=== PATIENT | female | born 1970 | race Caucasian/White ===

== ENCOUNTER → 2018-02-21 | Outpatient (CLI) | payer OTHER | LOC: BRMIMAGING 09:10 | PROVIDERS: ATTEND Family Medicine | DX: N63.23 Unspecified lump in the left breast, lower outer quadrant (principal) | CPT/HCPCS: 76641-PO ==

== ENCOUNTER → 2018-02-28 | Outpatient (CLI) | payer OTHER ==
[~2018-02-28] MED LIST: BUPIVACAINE 0.5% 30 ML SDV ONE; LIDOCAINE 1% 300 MG/30 ML SDV ONE; THROMBIN (BOVINE) 5,000 UNIT VIAL TP ONE
== END ==
LOC: FIMAGING 07:22
PROVIDERS: ATTEND Family Medicine
PROC: 0HBU3ZX Excision of Left Breast, Percutaneous Approach, Diagnostic (ICD-10-PCS; principal; 2018-02-28)
DX: C50.512 Malignant neoplasm of lower-outer quadrant of left female breast (principal)

== ENCOUNTER → 2018-03-11 | Outpatient (CLI) | payer OTHER ==
[~2018-03-11] MED LIST changes: -BUPIVACAINE 0.5% 30 ML SDV ONE; +GADOBUTROL 10 ML VIAL IVP ONE; -LIDOCAINE 1% 300 MG/30 ML SDV ONE; -THROMBIN (BOVINE) 5,000 UNIT VIAL TP ONE
== END ==
LOC: FIMAGING 11:35
PROVIDERS: ATTEND Surgery
DX: C50.412 Malignant neoplasm of upper-outer quadrant of left female breast (principal); N63.22 Unspecified lump in the left breast, upper inner quadrant; R59.9 Enlarged lymph nodes, unspecified
CPT/HCPCS: A9585; C8908

== ENCOUNTER → 2018-03-17 | Outpatient (CLI) | payer OTHER ==
--- NOTE | 2018-03-22 11:57 | PDHPUP ---
History & Physical Update H&P update statement: This history and physical update is based on an assessment of the patient which was completed after admission or registration (within 24 hours), but prior to the surgery/procedure. H&P update: H&P reviewed & patient examined, no change in patient's condition since H&P completed
--- NOTE | 2018-03-22 11:59 | POSTOPPROG ---
Post Op Note Date of Operation: 03/22/18 Surgeon: Alisson Hallman Sketch Artist: jose Anesthesiologist: gisella Anesthesia: LMA Pre-op Diagnosis: L breast cancer Post-op Diagnosis: L breast cancer Indication: 47 yo with L breast cancer Procedure: R us ij port and L sln Findings: several nodes Inf/Abcess present in the surg proc area at time of surgery?: No EBL: Minimal Drains: Nephrostomy Specimen(s): sln
== END | disposition home or self-care (01) ==
LOC: FIMAGING 13:24
PROVIDERS: ATTEND Surgery
DX: C50.412 Malignant neoplasm of upper-outer quadrant of left female breast (principal)

== ENCOUNTER 2018-03-22 08:50 | Day surgery (SDC) | payer OTHER ==
[~2018-03-22 08:50] MED LIST changes: -GADOBUTROL 10 ML VIAL IVP ONE; +LR 1,000 ML IV ONE; +ceFAZolin 2 GM/DEXTROSE 100 ML IV ONE
[2018-03-22] MEDS ORDERED: BUPIVACAINE 0.5% 30 ML SDV ONE (09:44)
--- NOTE | 2018-03-22 10:28 | PDANEPAE ---
ANE Past Medical History - Cardiovascular History Hx Hypertension: No Hx Arrhythmias: No Hx Chest Pain: No Hx Coronary Artery / Peripheral Vascular Disease: No Hx CHF / Valvular Disease: No Hx Palpitations: No - Pulmonary History Hx COPD: No Hx Asthma/Reactive Airway Disease: No Hx Recent Upper Respiratory Infection: No Hx Oxygen in Use at Home: No Hx Sleep Apnea: No - Neurologic History Hx Cerebrovascular Accident: No Hx Seizures: No Hx Dementia: No - Endocrine History Hx Diabetes: No - Liver History Hx Hepatic Disorders: No - Neurological & Psychiatric Hx Hx Neurological and Psychiatric Disorders: No - Cancer History Hx Cancer: Yes - Congenital Disorder History Hx Congenital Disorders: No - GI History Hx Gastrointestinal Disorders: No - Surgical History Prior Surgeries: 2 breast augmentations. 2 c-sections ANE Review of Systems Review of Systems: - Exercise capacity METS (RN): 4 METS ANE Patient History - Allergies Allergies/Adverse Reactions: morphine Allergy (Verified 03/22/18 09:19) Penicillins Allergy (Verified 03/22/18 09:19) Rash - Home Medications Home Medications: BIOTIN 03/22/18 [Last Taken 03/21/18] Prilosec 03/22/18 [Last Taken 03/21/18] Sertraline HCl 03/22/18 [Last Taken 03/21/18] Xanax 0.5 MG (*) 0.5 mg 03/22/18 [Last Taken 03/22/18] - NPO status NPO Since - Liquids (Date): 03/22/18 NPO Since - Liquids (Time): 01:00 NPO Since - Solids (Date): 03/22/18 NPO Since - Solids (Time): 01:00 - Smoking Hx Smoking Status: Never smoked - Family Anes Hx Family Hx Anesthesia Complications: dad-hard time coming out of anesthesia ANE Labs/Vital Signs - Vital Signs Blood Pressure: 109/56 Heart Rate: 81 Respiratory Rate: 19 O2 Sat (%): 93 Height: 160.02 cm Weight: 83.915 kg ANE Physical Exam - Airway Neck exam: FROM, spinal fusion Mouth exam: normal dental/mouth exam - Pulmonary Pulmonary: no respiratory distress, no rales or rhonchi, clear to auscultation - Cardiovascular Cardiovascular: regular rate and rhythym, no murmur, rub, or gallop - ASA Status ASA Status: II ANE Anesthesia Plan Anesthesia Plan: GA w LMA
[2018-03-22] MEDS ORDERED: MIDAZOLAM 2 MG/2 ML VIAL ONE ×2 (10:38→10:53)
[2018-03-22] MEDS ORDERED: LIDOCAINE 2% 5 ML SDV ONE (10:43)
[2018-03-22] MEDS ORDERED: PROPOFOL/EMULSION 500 MG/50 ML BOTTLE IV ONE (10:43)
[2018-03-22] MEDS ORDERED: KETAMINE 200 MG/20 ML VIAL ONE (10:43)
[2018-03-22] MEDS ORDERED: ONDANSETRON 4 MG/2 ML VIAL ONE (10:51)
[2018-03-22] MEDS ORDERED: RANITIDINE 50 MG/2 ML VIAL ONE (10:51)
[2018-03-22] MEDS ORDERED: METOCLOPRAMIDE 10 MG/2 ML VIAL ONE (10:51)
[2018-03-22] MEDS ORDERED: PROPOFOL 200 MG/20 ML VIAL ONE (11:14)
[2018-03-22] MEDS ORDERED: ONDANSETRON 4 MG/2 ML VIAL IVP PRN (11:22)
[2018-03-22] MEDS ORDERED: fentaNYL 100 MCG/2 ML INJ IVP PRN (11:22)
[2018-03-22] MEDS ORDERED: PROMETHAZINE HCL 25 MG/ML INJ IVP PRN (11:22)
[2018-03-22] MEDS ORDERED: ALBUTEROL 3 ML DEYVIAL IH PRN (11:22)
[2018-03-22] MEDS ORDERED: HYDROCODONE/APAP 5/325 TAB PO PRN ×2 (11:22→14:23)
[2018-03-22] MEDS ORDERED: NALOXONE HCL 0.4 MG/ML INJ IVP PRN (11:22)
[2018-03-22] MEDS ORDERED: oxyCODONE IR 5 MG TAB PO PRN (11:22)
[2018-03-22] MEDS ORDERED: DIAZEPAM 5 MG/ML 1 ML SYR IVP PRN (11:22)
[2018-03-22] MEDS ORDERED: METOCLOPRAMIDE 10 MG/2 ML VIAL IVP PRN (11:22)
[2018-03-22] MEDS ORDERED: LR 500 ML IV PRN (11:22)
[2018-03-22] MEDS ORDERED: DEXAMETHASONE 4 MG/ML VIAL IVP PRN (11:22)
--- NOTE | 2018-03-22 12:52 | POSTOPPROG ---
Post Op Note Date of Operation: 03/22/18 Surgeon: Alisson Hallman Alumni Relations Manager: jose Anesthesiologist: gisella Anesthesia: GET(General Endotracheal) Pre-op Diagnosis: L breast ca Post-op Diagnosis: same Indication: 47yo F with L breast ca Procedure: R USguided IJ power port, L SLN biopsy Findings: none unusual Inf/Abcess present in the surg proc area at time of surgery?: No EBL: Minimal
[2018-03-22] MEDS ORDERED: fentaNYL 100 MCG/2 ML INJ ONE (12:56)
--- NOTE | 2018-03-22 13:59 | POSTANESTH ---
Post Anesthetic Evaluation Cardiovascular Status: Normal, Stable, Similar to Pre-Op Cond Respiratory Status: Normal, Stable, Similar to Pre-op Cond. Level of Consciousness/Mental Status: Can Participate in Eval Pain Control: Adequate, Prn Tx Ordered Nausea/Vomiting Control: Adequate, Prn Tx Ordered Complications Possibly Related to Anesthesia: None Noted
[2018-03-22] MEDS ORDERED: HYDROCODONE/APAP 5/325 TAB ONE (14:10)
[2018-03-22 15:29] VITALS: BP 108/64
--- NOTE | 2018-03-22 16:03 | GOP ---
DATE OF OPERATION: 03/22/2018 SURGEON: Alisson Hallman MD PROBATION AGENT: Kelly Marinelli PA-C ANESTHESIA: General. ANESTHESIOLOGIST: Dr. Ramona Correia. PREOPERATIVE DIAGNOSIS: Left breast lower outer infiltrating ductal carcinoma. POSTOPERATIVE DIAGNOSIS: Left breast lower outer infiltrating ductal carcinoma. PROCEDURE PERFORMED: 1. Right ultrasound-guided internal jugular PowerPort placement. 2. Left sentinel lymph node biopsy. FINDINGS: 1. Tip of the catheter in the SVC. 2. Enlarged lymph node. SPECIMENS: [place] lymph nodes. ESTIMATED BLOOD LOSS: 10 cc. INDICATIONS: This is a 47-year-old woman with a recent diagnosis of breast cancer. She will need a port for chemotherapy. On her MRI, there was concern of an enlarged axillary lymph node. Second-look ultrasound did not show abnormal lymph nodes. However, due to the characteristics on MRI, I felt th at appropriately staging the axilla prior to chemotherapy was prudent. DESCRIPTION OF PROCEDURE: The patient was brought into the operating room, placed supine on the tabl e, and general anesthesia was administered. Her bilateral neck, chest, axilla were prepped and drape d in the usual sterile fashion. Infiltrated all sites with 0.5% Marcaine prior to making incisions. She was placed in the Trendelenburg position. I used the ultrasound to identify her right internal jugular vein. It was fully compressible. I accessed it with a large bore needle and dark return of blood flow on the first attempt. I threaded the guidewire and removed the needle. I created a pocke t to accommodate the port in the right chest. I tunneled the catheter. Under fluoroscopy, I confirm ed that the wire was in correct position and I measured the catheter and cut it to size. Using the Allen barrow technique, I placed the dilator and sheath over the wire, I removed the wire and the dilator . I peeled away the sheath. Placement confirmed with fluoroscopy. The port withdrew blood easily a nd was flushed with heparin. I closed the pocket with 3-0 Vicryl followed by 4-0 Monocryl, Dermabond applied. Next I moved to the left axilla. I made an incision beneath the hair-bearing portion on her left axi lla. I dissected down through the skin and subcutaneous tissues. I broke into the axillary space. I used the gamma probe to help direct me toward the hottest lymph node. I explored this area. There was a very enlarged node in this area. I removed this, but the actual sentinel lymph node was a bit deeper and small. Her lymph nodes were discolored, which may be an effect from her tattoo. I sent the sentinel lymph node, which measured 4000, separately than the other 2 lymph nodes. Hemostasis ac hieved in the cavity. I closed it with 3-0 Vicryl followed by 4-0 Monocryl. Mastisol, Steri-Strips, sterile dressing applied. She was awakened in the operating room, extubated and transferred to PACU in stable condition. /[id number]/MODL
== END 2018-03-22 15:05 | disposition home or self-care (01) ==
LOC: FSGY 08:50
PROVIDERS: ATTEND Surgery
PROC: 02HV33Z Insertion of Infusion Device into Superior Vena Cava, Percutaneous Approach (ICD-10-PCS; principal; 2018-03-22 11:00)
PROC: 0JH60XZ Insertion of Tunneled Vascular Access Device into Chest Subcutaneous Tissue and Fascia, Open Approach (ICD-10-PCS; principal; 2018-03-22 11:00)
PROC: 07B60ZX Excision of Left Axillary Lymphatic, Open Approach, Diagnostic (ICD-10-PCS; 2018-03-22 11:00)
DX: D05.12 Intraductal carcinoma in situ of left breast (principal)
CPT/HCPCS: 36561; 38525; 71045; 78195; A9520; C1788; J0690; J1642; J2250; J2405; J2704; J2765; J2780; J3010